=== PATIENT | female | born 1990 | race Caucasian/White ===

== ENCOUNTER → 2019-08-10 11:14 | Outpatient (CLI) | payer OTHER, SELFPAY ==
--- NOTE | ~2019-08-10 | US_ITS ---
EXAMINATION: US OB >= 14 weeks Fetus DATE: 08/10/2019 11:53 INDICATION: survey TECHNIQUE: Multiple obstetric sonographic images performed. FINDINGS: No prior studies for comparison. There is a single living fetus in breech presentation. The placenta is posterior without placenta pr evia. Placental margin to the cervix is 3.6 cm. Amniotic fluid volume is subjectively normal. c ardiac activity and movement is noted with a heart rate of 153 beats per minute. The following anatomy was identified as normal: 4 chamber heart 3 vessel cord cord insertion kidneys urinary bladder stomach spine diaphragm ventricles cisterna magna cerebellum The following biometric data were obtained: BPD: 36mm corresponds to gestational age 17 weeks 0 days. Head circumference: 137 mm corresponds to gestational age 17 weeks 1 days. Abdominal circumference: 104 mm corresponds to gestational age 16 weeks 3 days. Femur length: 19 mm corresponds to gestational age 15 weeks 4 days. Head circumference to abdominal circumference ratio: 1.31 (normal range for expected gestational age is 1.07-1.31). Estimated weight: 145 grams +/- 22 grams using Hadlock method. IMPRESSION: 1: Single living intrauterine with an estimated gestational age of 16weeks 4days by current ultrasound measurements, with an EDC of 01/21/2020 in breech presentation. 2. Normal survey. Reviewed, dictated and finalized at location A. X SYSTEMS ADMINISTRATOR IMPRESSION: 1: Single living intrauterine with an estimated gestational age of 16 weeks 4days by current ultrasound measurements, with an EDC of 01/21/2020 in hillary ech presentation. 2. Normal survey.
== END ==
PROVIDERS: Visit Provider Obstetrics & Gynecology Gynecology
DX: Z36.89 Encounter for other specified antenatal screening (principal); Z36.87 Encounter for antenatal screening for uncertain dates; Z3A.16 16 weeks gestation of pregnancy
CPT/HCPCS: 76805

== ENCOUNTER 2019-12-29 13:17 | Outpatient (RCR) | payer OTHER, SELFPAY ==
--- NOTE | ~2019-12-29 | US_ITS ---
EXAMINATION: US OB limited w BPP DATE: 12/29/2019 14:12 INDICATION: Decreased movement during third trimester TECHNIQUE: Real-time pelvic ultrasound was performed. The interpreting radiologist was not present fo r the study. COMPARISON: None. FINDINGS: There is a single living fetus in vertex presentation. The placenta is posterior. heart rate is 148 beats per minute (bpm). The amniotic fluid index is 17.4 cm which is normal Biophysical profile performed by the technologist: breathing (30 sec sustained breathing in 30 minutes): 2 out of 2 movement (3 gross body movements in 30 minutes): 2 out of 2 tone (one episode of wayhuul-kctqjhvhc-dpjbqxk limb movement): 2 out of 2 Amniotic fluid pocket (2 cm): 2 out of 2 Total score: 8 out of 8 IMPRESSION: 1. Single living fetus in vertex presentation. 2. Biophysical profile 8 out of 8. 3. Normal amniotic fluid index. Reviewed, dictated and finalized at location A.
[2019-12-29 13:43] VITALS: BP 121/78; PULSE 111
== END 2020-01-11 07:57 | disposition home or self-care (01) ==
LOC: ANHOBOP 13:17
PROVIDERS: PCP Family Medicine; Visit Provider Obstetrics & Gynecology Gynecology
DX: O36.8130 Decreased fetal movements, third trimester, not applicable or unspecified (principal); Z3A.37 37 weeks gestation of pregnancy
CPT/HCPCS: 59025; 76815; 76819

== ENCOUNTER 2020-01-06 04:57 | Inpatient (IN) | payer OTHER, SELFPAY ==
[2020-01-06] VITALS (128 sets, daily range): BP systolic 73–126; BP diastolic 25–87; PULSE 64–119; RESP 16; TEMP 36.6–37.2; O2SAT 96–100; BMI 32.6
--- NOTE | 2020-01-06 05:38 | LDADM ---
This patient, Sherrill Macdonald, was admitted to Labor/Delivery/Recovery 104 on 01/06/20 at 04:57. Plans for labor, pain management and were discussed with patient. Patient/family oriented to hospital policies and general routines including ID bracelet, bed and alarms, visiting hours, pain management, procedures, bathroom and other care routines, personal items, smoking policy, room service/diet and guest tray routines, security routines, and visiting hours. Patient/Family are encouraged to report perceived risks to care and to ask questions if they do not understand what they are told or what they should do. See OBIX for further documentation.
[2020-01-06 05:44] LABS: Basophils Percent Auto 0.3 % (0.2-1.2); Eosinophils Absolute Auto 0.2 K/mm3 (0-0.3); Eosinophils Percent Auto 1.4 % (0-4.4); Hematocrit 39.7 % (37.0-47.0); Hemoglobin 13.8 g/dL (12.0-15.0); Immature Granulocyte Absolute 0.07 K/mm3 (0.00-0.031); Immature Granulocyte Percent A 0.6 % (0-0.5); Lymphocytes Absolute Auto 2.56 K/mm3 (0.9-3.2); Lymphocytes Percent Auto 23.2 % (18.3-44.2); Mean Corpuscular HGB Conc 34.8 g/dl (32-36); Mean Corpuscular Hemoglobin 32.3 pg (26-34); Mean Platelet Volume 9.8 fl (7.4-10.4); Monocytes Absolute Auto 0.8 K/mm3 (0.1-0.6); Monocytes Percent Auto 7.1 % (2.6-8.5); Neutrophils Absolute Auto 7.5 K/mm3 (1.3-6.7); Neutrophils Percent Auto 67.4 % (45.5-73.1); Platelet Count Result 207 k/mm3 (150-375); Red Blood Count 4.27 M/mm3 (4.2-5.4); Red Cell Distribution Width 13.7 % (11.5-14.5)
[2020-01-06] MEDS: OXYTOCIN 30 UNITS/NS 500 ML 30 UNITS/500 ML BAG 6 UNITS IV CONT (06:30)
[2020-01-06] MEDS: LACTATED RINGERS 1,000 ML 125 ML IV CONT ×4 (06:30→20:49)
[2020-01-06] MEDS: AMPICILLIN 2 GM/NS 100 ML 2 GM/100 ML BAG IVPB (06:31)
[2020-01-06 07:06] LABS: HIV 1/2 Ab P24 Ag Result Negative (Negative)
[2020-01-06 07:40] LABS: Rapid Plasma Reagin Non-Reactive (NonReactive)
[2020-01-06] MEDS: AMPICILLIN 1 GM/NS 50 ML 1 GM/50 ML BAG IVPB ×3 (10:33→20:30)
--- NOTE | 2020-01-06 12:01 | WPDOBADMIT ---
Obstetrics - Admit Note Admission Note: AROM clear fluid /-2 vertex record reviewed. No pertinent additions to the history and/or any subsequent changes in the physical findings that are not consistent with the expected course of the were found. Additions to the history and/or subsequent changes in the physical findings follow. None.
--- NOTE | 2020-01-06 13:20 | WPDANESEPP ---
Anes - Eval Pre Procedure Procedure: Labor Epidural Date/Time: 01/06/20 13:20 Surgeon: Sher Preop Diagnosis: Labor Pain Pre Op Diagnosis: Induction of Labor Patient Data Age: 29 Gender: F Height: Weight: Last Vital Signs Temp 36.8 C 01/06/20 12:30 Pulse 86 01/06/20 12:15 BP 121/78 01/06/20 12:15 Allergies Allergy/AdvReac Type Severity Reaction Status Date / Time No Known Allergies Allergy Verified 12/14/19 12:42 Home Medications Medication Instructions Recorded Confirmed Type buspirone 7.5 mg tablet 7.5 mg PO BID #180 tablet 10/12/19 12/10/19 Rx escitalopram oxalate 20 mg tablet 20 mg PO DAILY #90 tablet 11/30/19 12/10/19 Rx PNV cmb#95-ferrous fumarate-FA 1 tablet PO DAILY 12/14/19 12/14/19 History [] ergocalciferol (vitamin D2) 1,250 mcg PO WEEKLY 12/14/19 12/14/19 History [Vitamin D2] Laboratory Tests 01/06/20 01/06/20 01/06/20 05:34 05:34 05:34 WBC 11.0 K/mm3 H K/mm3 (4.5-10.0) RBC 4.27 M/mm3 M/mm3 (4.2-5.4) Hgb 13.8 g/dL g/dL (12.0-15.0) Hct 39.7 % % (37.0-47.0) MCV 93.0 fl fl (80-100) MCH 32.3 pg pg (26-34) MCHC 34.8 g/dl g/dl (32-36) RDW 13.7 % % (11.5-14.5) Plt Count 207 k/mm3 k/mm3 (150-375) MPV 9.8 fl fl (7.4-10.4) Immature Gran % (Auto) 0.6 % H % (0-0.5) Neut % (Auto) 67.4 % % (45.5-73.1) Lymph % (Auto) 23.2 % % (18.3-44.2) [place] % (Auto) 7.1 % % (2.6-8.5) Eos % (Auto) 1.4 % % (0-4.4) Baso % (Auto) 0.3 % % (0.2-1.2) Lymph # (Auto) 2.56 K/mm3 K/mm3 (0.9-3.2) [place] # (Auto) 0.8 K/mm3 H K/mm3 (0.1-0.6) Eos # (Auto) 0.2 K/mm3 K/mm3 (0-0.3) Baso # (Auto) 0.0 K/mm3 K/mm3 (0.0-0.1) Abs Immat Gran (auto) 0.07 K/mm3 H K/mm3 (0.00-0.031) Absolute Neuts (auto) 7.5 K/mm3 H K/mm3 (1.3-6.7) Absolute Nucleated RBC 0.0 K/mm3 K/mm3 (0.0-0.012) Nucleated RBC % 0.0 % % (0.0-0.2) RPR Non-reactive (NonReactive) HIV 1&2 Ab/P24 Ag 4thGn Negative (Negative) Blood Type Antibody Screen 01/06/20 05:34 WBC RBC Hgb Hct MCV MCH MCHC RDW Plt Count MPV Immature Gran % (Auto) Neut % (Auto) Lymph % (Auto) [place] % (Auto) Eos % (Auto) Baso % (Auto) Lymph # (Auto) [place] # (Auto) Eos # (Auto) Baso # (Auto) Abs Immat Gran (auto) Absolute Neuts (auto) Absolute Nucleated RBC Nucleated RBC % RPR HIV 1&2 Ab/P24 Ag 4thGn Blood Type O Positive Antibody Screen Negative : gestational age (ARLEN 01/13/20) Patient hx anesthesia problems: none Family hx anesthesia problems: none [facility] Family History Family History Grandparent Hypertension Family history of heart disease in male family member before age 55 Diabetes mellitus Social History Social History Smoking status: Never smoker Second hand tobacco smoke exposure: No Alcohol intake: current Substance use: never Spiritual care concerns: No Exam Day of Procedure 01/06/20 13:20 Patient weight: normal Heart: regular rate and rhythm Lungs: normal air movement Airway: Mallampati scale class II Neurological: alert and oriented
[2020-01-07] VITALS (24 sets, daily range): BP systolic 90–134; BP diastolic 47–95; PULSE 26–159; RESP 16; TEMP 36.6–37.7; O2SAT 79–100
[2020-01-07] MEDS: AMPICILLIN 1 GM/NS 50 ML 1 GM/50 ML BAG IVPB (00:06)
[2020-01-07] MEDS: LACTATED RINGERS 1,000 ML 125 ML IV CONT (00:08)
[2020-01-07] MEDS: OXYTOCIN 30 UNITS/NS 500 ML 30 UNITS/500 ML BAG 125 UNITS IV CONT (02:46)
--- NOTE | 2020-01-07 03:09 | PM.OBPRVD ---
OB - Delivery Note Procedure Delivery date: 01/07/20 Procedure: events: Labor Induction Induction method: AROM and per pitocin protocol Delivery monitor: external FHT, external uterine, internal FHT and internal uterine Route of delivery: Episiotomy description: Right Mediolateral Laceration description: Perineal - 2nd Degree Delivery repair: vicryl Specimen: Yes Estimated blood loss (mL): 400 Anesthesia type: Epidural Disposition: floor Shannon Baby Date of : 01/07/20 Time of : 02:36 Weeks of gestation at delivery: 39 gender: Male Weight (pounds): 7 Weight (ounces): 2 presentation: vertex position: Left Occiput Anterior Placenta delivery description: Spontaneous cord vessel description: 3 Vessels score one minute: 7
[2020-01-07] MEDS: ONDANSETRON INJ 4 MG/2 ML VIAL IV PUSH (04:41)
[2020-01-07] MEDS: IBUPROFEN 600 MG TABLET PO ×2 (04:42→15:42)
[2020-01-07] MEDS: WITCH HAZEL 40 PADS 1 PAD TOPICAL (04:42)
[2020-01-07] MEDS: BENZOCAINE 20% AER SPR (*SP) 56 GM CAN 1 SPRAY TOPICAL (04:43)
[2020-01-07] MEDS: LANOLIN (LANSINOH) 7.5 GM CREAM 1 APPLIC TOPICAL (04:43)
--- NOTE | 2020-01-07 05:31 | PC.NURSE ---
This patient, Sherrill Macdonald, was received from L&D on 01/07/20 at 0515. Personal belongings list checked and signed. Patient/family oriented to unit policies and routines
--- NOTE | 2020-01-07 09:20 | PC.NURSE ---
Consulted with patient, mother reports infant has not breastfed since , infant is now 7 hours old. Reviewed feeding cues, frequencies, duration of feedings, feeding elimination flow sheet, and signs of adequate intake. Demonstrated stimulation techniques to wake infant for feeding. Assisted with infant to breast. is sleepy and makes weak attempts to latch. Attempt for 10 minutes without a successful latch. Feeding options discussed, mother will supplement at this time. Primary RN to assist with bottle feeding. Instructed mother to call out for RN assistance if she is unable to latch for feeding or she has discomfort with nursing. Instructed feeding should be initiated three hours from start of last feeding or if feeding cues are noted before. Mother voiced understanding of information shared.
[2020-01-07] MEDS: DOCUSATE SODIUM 100 MG CAPSULE PO (09:52)
[2020-01-07] MEDS: MULTIVIT/MIN/PREN/FOL AC/IRON TABLET 1 TAB PO (09:52)
[2020-01-07] MEDS: ESCITALOPRAM OXALATE 10 MG TABLET 20 MG PO (09:59)
[2020-01-07] MEDS: busPIRone HCL 2.5 MG, busPIRone HCL 5 MG 7.5 MG PO (10:00)
--- NOTE | 2020-01-07 12:15 | PC.NURSE ---
Mother called out for assist with feeding. Demonstrated stimulation techniques to wake for feeding. Assisted with to breast. Reviewed positioning/alignment in cross cradle, holding breast in U hold and guided asymmetrical latch on. Discussed rational for each. Several attempts before infant was able to latch correctly. Infant made a few weak draws with no swallowing noted. Infant remains sleepy and makes not attempts to latch. Attempt for 10+ minutes. Feeding options discussed, mother will supplement. Suggested mother initiate pumping to stimulate milk supply and offer infant EBM as part of feeding.
--- NOTE | 2020-01-07 13:00 | PC.NURSE ---
Breast pump provided due to ineffective feeding. Instructions given on breast pump care and usage, pumping schedule, nipple care, and collection and storage of breast milk. Encouraged taur-al-duds, breast massage and manual expression to stimulate supply. Assessed patient for correct flange size, placement and draw. Patient verbalizes and demonstrates understanding of instructions.
--- NOTE | 2020-01-07 15:30 | PC.NURSE ---
Assisted mother with feeding. Demonstrated stimulation techniques to wake for feeding. Assisted with to breast. Reviewed positioning/alignment in cross cradle, holding breast in U hold and guided asymmetrical latch on. Discussed rational for each. Several attempts before was able to latch correctly. Infant made a few weak draws with no swallowing noted. Infant remains sleepy and makes not attempts to latch. Attempt for 10+ minutes. Feeding options discussed, mother will supplement. Mother will pump after supplementation.
--- NOTE | 2020-01-07 17:26 | PC.NURSE ---
Nurse and/or hospice care sales consultant has worked with mother and baby at each feeding today. Baby very sleepy; he has has made no effort to root to latch to feed; numerous attempts made to wake and get him to latch. Mother is attempting breast feeding, then bottle feeding infant. Mother and FOB have fed today. Mother initiated pumping after each breast feeding attempt. she was shown pump set-up and settings. Baby has good suck/swallow with bottle feeding and has tolerated feedings well. Parents reassured that baby will start to be more awake and make more effort in breast feeding, but to continue this plan. They are in agreement.
[2020-01-08] MEDS: IBUPROFEN 600 MG TABLET PO ×3 (04:16→19:47)
[2020-01-08 05:35] LABS: Hematocrit 31.4 % (37.0-47.0); Hemoglobin 10.7 g/dL (12.0-15.0)
[2020-01-08 08:30] VITALS: BP 118/84; PULSE 67; RESP 18; TEMP 36.5; O2SAT 98
[2020-01-08] MEDS: DOCUSATE SODIUM 100 MG CAPSULE PO (08:58)
[2020-01-08] MEDS: MULTIVIT/MIN/PREN/FOL AC/IRON TABLET 1 TAB PO (08:58)
[2020-01-08] MEDS: busPIRone HCL 2.5 MG, busPIRone HCL 5 MG 7.5 MG PO ×2 (08:59→19:47)
[2020-01-08] MEDS: ESCITALOPRAM OXALATE 10 MG TABLET 20 MG PO (08:59)
--- NOTE | 2020-01-08 10:16 | WPDANLDPN2 ---
Anes-Prog Note L&D Date/Time: 01/08/20 10:16 Comfortable throughout: labor Neuraxial method: epidural Epidural/Spinal procedure site: clean & non-tender Neuro status: Neuro function grossly intact. Cardiovascular status: normal Respiratory status: normal Airway patency: baseline Mental status: baseline Post-Op hydration status: normal Vital Signs: Last Vital Signs Temp 97.8 F 01/07/20 19:33 Pulse 72 01/07/20 19:33 Resp 16 01/07/20 19:33 BP 115/69 01/07/20 19:33 Pulse Ox 98 01/07/20 19:33 I/O: Intake & Output 01/07/20 01/08/20 01/08/20 23:59 07:59 15:59 Intake Total 500 Balance 500 Post-procedural complaints: none Patient feedback: Patient satisfied with anesthetic care.
[2020-01-08 19:45] VITALS: BP 104/80; PULSE 64; RESP 18; TEMP 36.8; O2SAT 100
--- NOTE | 2020-01-09 08:00 | PC.NURSE ---
PT introductions made and plan of care discussed per post , pain management, breast feeding, daily care activities and pending discharge to home. PT verbalized understanding of such care.
[2020-01-09 09:30] VITALS: BP 111/80; PULSE 64; PULSE 90; RESP 18; TEMP 36.4; O2SAT 100
--- NOTE | 2020-01-09 09:30 | PC.NURSE ---
Patient viewed the discharge video Mother & Baby Care, The First Two Weeks . Patient was given the opportunity and encouraged to ask questions. Patient verbalized understanding of information shared and has been given the mother/baby guide for home reference.
[2020-01-09] MEDS: IBUPROFEN 600 MG TABLET PO (09:51)
[2020-01-09] MEDS: MULTIVIT/MIN/PREN/FOL AC/IRON TABLET 1 TAB PO (09:51)
[2020-01-09] MEDS: DOCUSATE SODIUM 100 MG CAPSULE PO (09:53)
[2020-01-09] MEDS: busPIRone HCL 2.5 MG, busPIRone HCL 5 MG 7.5 MG PO (09:53)
[2020-01-09] MEDS: ESCITALOPRAM OXALATE 10 MG TABLET 20 MG PO (09:54)
--- NOTE | 2020-01-09 11:01 | PM.OBPNVD ---
OB - PN: Subj Subjective Date/time seen: 01/09/20 11:01 S: doing well no complaints OB - PN: Obj Data Labs CBC & Chem 7: 01/08/20 04:22 OB - PN A/P Assessment and Plan (1) (normal spontaneous vaginal delivery): Code(s): O80 - Encounter for full-term uncomplicated delivery Status: Acute Assessment and Plan: d/c home home Time Spent With Patient Time: Total time spent is greater than 50% in coordination of care (as documented) at patient's floor/unit and/or counseling patient: Exam GI: Other: ff below umbilicus
--- NOTE | 2020-01-09 14:30 | PC.NURSE ---
Pt received discharge instructions per protocol and verbalized understanding of such care.
--- NOTE | 2020-01-09 15:00 | PC.NURSE ---
PT discharged to home ambulatory accompanied by spouse and and taken to waiting car.
[2020-01-11 08:34] VITALS: BP 115/85; PULSE 59; RESP 16; TEMP 37.5; O2SAT 99
--- NOTE | 2020-01-27 13:50 | PM.OBDSVD ---
DS: Admitting Diagnosis Admitting Diagnosis Admitting Diagnosis: Encounter for supervision of normal , unspecified, third trimester OB - DS: Summary OB Procedures : Ultrasound OB Procedures Intrapartum: Spontaneous Vag Delivery OB Procedures: : None Peripartum Data Delivery Method: Natural Vaginal Laceration description: Periurethral - 2nd Degree Time Spent with Patient Time attestation: Total time spent providing and/or coordinating discharge services: DS: Data Data Completed and Pending Completed studies during hospitalization: Pending at discharge 01/07/20 02:39 Surgical [PTH] Routine Discharge Plan Discharge Attending physician on discharge: Gabriel Dumont Discharging Clinician: Gabriel Dumont Patient Disposition: Home, Self-Care Activity: may shower Diet: regular Discharge Instructions: Education: Mom and Baby Guide Given to: Mother Follow-Up: Call your delivering provider's office for an appointment to be seen in: 6 Weeks [facility]. Appointment Date/Time: January 11, 2020 at 8:00 am What to expect at your follow-up visit: Blood Pressure Check Call [phone] if you are unable to keep your appointment time. BREAST CARE: 1. Wear a snug supportive bra. 2. For engorgement discomfort: Breast Feeding: A. Apply warm moist washcloths B. Express milk as needed to relieve engorgement C. Wear loose clothing Bottle Feeding: A. May apply ice packs 3. For sore nipples: A. Identify correct latch-on B. Apply warm moist washcloths before and after nursing C. Air dry nipples after nursing D. May apply Lansinoh cream to nipples PERINEAL CARE: 1. Until bleeding stops, use your gordo bottle after urinating 2. Change your pad frequently throughout the day 3. You may take sitz baths several times a day (fill your bathtub with warm water and soak for 20 minutes.) Do NOT bathe in the water 4. No tub baths until seen by your physician - You may shower ACTIVITY: 1. Rest as much as possible. 2. Do not exercise or lift anything heavier than your baby (such as laundry or other children.) 3. Avoid stairs or driving as much as possible. 4. Do not put anything into the vagina. No douching, tampons, or sexual activity until seen by physician. NOTIFY PHYSICIAN IF YOU HAVE ANY QUESTIONS OR IF ANY OF THE FOLLOWING SYMPTOMS OCCUR: 1. If your perineum becomes red, swollen, or more painful than what you have experienced in the hospital. 2. If your vaginal bleeding becomes foul smelling. 3. If your vaginal bleeding becomes more heavy than a period or if your bleeding changes from pink to bright red. However, you may pass an occasional walnut-sized clot once or twice for the first week . 4. If you experience a sharp, shooting pain in you calves. 5. If you discover a hard, reddened area on your breast or if you experience flu-like symptoms. DIET: 1. Eat regular, well-balanced meals. 2. Drink plenty of fluids daily. If , drink to thirst. Patient Instructions: Antibiotic Form Stand Alone Forms: General Discharge Information Follow-up/Referrals: Gabriel Dumont MD [Physician] - Discharge Medications: Continued PNV cmb#95-ferrous fumarate-FA [] 28 mg iron- 800 mcg Tablet 1 tablet PO DAILY RF: 0 ergocalciferol (vitamin D2) [Vitamin D2] 1,250 mcg (50,000 unit) Capsule 1,250 mcg PO WEEKLY RF: 0 escitalopram oxalate [Lexapro] 20 mg tablet 20 mg PO DAILY Qty: 90 RF: 0 No Action buspirone 7.5 mg tablet 7.5 mg PO BID Qty: 180 RF: 0 Date of admission: 01/06/20 04:57 Primary Care Provider: Keo Loyola Admitting Provider: Lucie Olivarez Discharge Date/Time: 01/09/20 15:00 Attending physician on admission: Gabriel Dumont
== END 2020-01-09 15:00 | disposition home or self-care (01) | DRG 807 ==
LOC: ANHLDR 01-07 03:09 → ANHOB2 01-07 13:48 → ANHLDR 01-11 20:48 → ANHOB2 01-11 20:48
PROVIDERS: Admitting Provider Obstetrics & Gynecology Gynecology; PCP Family Medicine; Visit Provider Obstetrics & Gynecology
DX: O99.824 Streptococcus B carrier state complicating childbirth (principal); Z37.0 Single live birth; Z3A.39 39 weeks gestation of pregnancy; O99.344 Other mental disorders complicating childbirth; O70.1 Second degree perineal laceration during delivery; F41.8 Other specified anxiety disorders; O36.8330 Maternal care for abnormalities of the fetal heart rate or rhythm, third trimester, not applicable or unspecified
CPT/HCPCS: 36415; 85014; 85018; 85025; 86592; 86703; 86850; 86900; 86901; 88307; A9270; G0432; J0290; J2405; J2590; J2795; J7120

== ENCOUNTER → 2020-07-11 11:47 | Outpatient (CLI) | payer BC, SELFPAY ==
--- NOTE | ~2020-07-11 | US_ITS ---
EXAMINATION: US thyroid DATE: 07/11/2020 12:04 INDICATION: Enlarged thyroid. TECHNIQUE: Multiple ultrasound images of the thyroid were obtained. COMPARISON: None. FINDINGS: The right thyroid lobe measures 6.7 x 2.7 x 2.5 cm. The left thyroid lobe measures 5.9 x 2.5 x 2.1 c m. The thyroid is diffusely hypoechoic with coarsened echotexture and increased vascularity, consist ent with chronic lymphocytic (Nanci) thyroiditis. In the left thyroid lobe, there is a 1.1 cm pre dominantly solid, hyperechoic, nxdwj-anjl-pqof nodule with ill-defined margin without echogenic foci (TI-RADS TR3). IMPRESSION: 1. Heterogeneous, hypervascular thyroid, likely chronic lymphocytic (Nanci) thyroiditis. 2. 1.1 cm left thyroid nodule, likely not clinically significant. No follow-up is needed. Reviewed, dictated and finalized at location B. CTOR DIABETES
== END ==
PROVIDERS: Visit Provider Nurse Practitioner
DX: E04.1 Nontoxic single thyroid nodule (principal)
CPT/HCPCS: 76536

== ENCOUNTER 2020-07-14 16:51 | Outpatient (CLI) | payer BC, SELFPAY ==
--- NOTE | ~2020-07-14 | CT_ITS ---
EXAMINATION: CT abdomen pelvis w con INDICATION: Left lower quadrant pain TECHNIQUE: Computed tomographic images of the abdomen and pelvis were obtained after the administrati on of 100 cc of Omnipaque 350 intravenous contrast. The dose-length product (DLP) was 594.51 mGy-cm. Automated exposure control and iterative reconstruction technique were employed. COMPARISON: 09/21/2013 FINDINGS: Minimal dependent atelectasis is present in the lung bases. The heart size is normal. The l iver, spleen, pancreas, gallbladder, and adrenal glands are normal. The kidneys are unremarkable. No pathologically enlarged abdominal or pelvic lymph nodes are identified. There is no free intraperiton eal gas or evidence of bowel obstruction. A large volume of colonic stool is present. An IUD is prese nt in the uterus in expected position. IMPRESSION: 1. Constipation. Reviewed, dictated and finalized at location A. EAR TECHNOLOGIST IMPRESSION: 1. Constipation.
[2020-07-14 17:25] LABS: Basophils Absolute Auto 0.1 K/mm3 (0.0-0.1); Basophils Percent Auto 0.7 % (0.2-1.2); Eosinophils Absolute Auto 0.3 K/mm3 (0-0.3); Eosinophils Percent Auto 3.4 % (0-4.4); Hematocrit 44.1 % (37.0-47.0); Immature Granulocyte Absolute 0.03 K/mm3 (0.00-0.031); Immature Granulocyte Percent A 0.4 % (0-0.5); Lymphocytes Percent Auto 33.3 % (18.3-44.2); Mean Corpuscular Hemoglobin 30.1 pg (26-34); Mean Corpuscular Volume 88.4 fl (80-100); Mean Platelet Volume 8.8 fl (7.4-10.4); Monocytes Absolute Auto 0.6 K/mm3 (0.1-0.6); Monocytes Percent Auto 7.5 % (2.6-8.5); Neutrophils Absolute Auto 4.6 K/mm3 (1.3-6.7); Neutrophils Percent Auto 54.7 % (45.5-73.1); Platelet Count Result 262 k/mm3 (150-375); Red Blood Count 4.99 M/mm3 (4.2-5.4); White Blood Count 8.4 K/mm3 (4.5-10.0)
[2020-07-14 17:36] LABS: Alanine Aminotransferase 30 U/L (4-35); Albumin Level 4.4 g/dL (3.5-5.1); Alkaline Phosphatase 81 U/L (38-126); Amylase 108 U/L (30-110); Anion Gap 6 mmol/L (8-16); Aspartate Amino Transferase 31 U/L (14-36); Bilirubin,Total 0.6 mg/dL (0.2-1.3); Blood Urea Nitrogen 10 mg/dL (7-17); Calcium 8.7 mg/dL (8.4-10.2); Carbon Dioxide 24 mmol/L (22-30); Chloride 107 mmol/L (98-107); Estimated Glomerular Filt Rate > 60; Glucose 89 mg/dL (65-105); Lipase 188 U/L (23-300); Potassium 3.9 mmol/L (3.4-5.0); Sodium 137 mmol/L (137-145)
== END 2020-07-14 16:52 | disposition home or self-care (01) ==
PROVIDERS: Family Provider Family Medicine; PCP Family Medicine; Visit Provider Nurse Practitioner Family
DX: R10.817 Generalized abdominal tenderness (principal); R10.84 Generalized abdominal pain; R10.814 Left lower quadrant abdominal tenderness
CPT/HCPCS: 36415; 74177; 80053; 82150; 83690; 85025; Q9967

== ENCOUNTER → 2021-03-15 14:18 | Outpatient (CLI) | payer BC, SELFPAY ==
--- NOTE | ~2021-03-15 | US_ITS ---
EXAMINATION: US pelvic complete DATE: 03/15/2021 14:35 INDICATION: Pelvic pain Comparison:No prior studies for comparison. TECHNIQUE: Multiple transabdominal sonographic images of the pelvis performed. FINDINGS: The uterus measures 9.6 x 2.5 x 4.7 cm. There is an IUD in the endometrium. The endometrial complex measures 5 mm. The right ovary measures 2.5 x 1.7 x 2 cm and the left ovary measures 3.6 x 1.9 x 2.7 cm. There are small follicles in each ovary. Normal doppler signal in both ovaries. There is no free fluid in the pelvis. There are no abnormal masses seen on either side. IMPRESSION: 1. Unremarkable pelvic ultrasound. Reviewed, dictated and finalized at location A.
== END ==
PROVIDERS: Visit Provider Nurse Practitioner
DX: R10.2 Pelvic and perineal pain (principal)
CPT/HCPCS: 76856

== ENCOUNTER → 2022-09-03 13:44 | Outpatient (CLI) | payer BC, SELFPAY ==
--- NOTE | ~2022-09-03 | US_ITS ---
Pelvic ultrasound. Clinical History: Pelvic pain Technique: Realtime transabdominal and transvaginal scanning of the pelvis was performed. Color flow Doppler and Doppler spectral analysis were performed. Findings: The uterus is anteverted. The endometrial stripe has a thickness of 3 mm. IUD in satisfact ory position. No focal mass is identified. The right ovary measures 2.1 x 2.1 x 2.5 cm. No significant right ovarian or adnexal mass is seen. The left ovary measures 3.1 x 2.2 x 2.3 cm. No significant left ovarian or adnexal mass is seen. Vascular flow present in both ovaries on Doppler spectral analysis. There is no evidence of free fluid in the cul de sac. Impression: IUD in place, otherwise unremarkable exam. Reviewed, dictated and finalized at [facility]. Impression: IUD in place, otherwise unremarkable exam.
== END ==
PROVIDERS: PCP Nurse Practitioner; Visit Provider Nurse Practitioner
DX: R10.2 Pelvic and perineal pain (principal); Z97.5 Presence of (intrauterine) contraceptive device
CPT/HCPCS: 76830

== ENCOUNTER 2023-10-23 13:28 | Outpatient (CLI) | payer BC, SELFPAY ==
--- NOTE | ~2023-10-23 | US_ITS ---
EXAMINATION: US pelvic complete DATE: 10/23/2023 13:50 INDICATION: Polycystic ovarian syndrome. TECHNIQUE: Multiple transabdominal and transvaginal sonographic images of the pelvis were obtained. COMPARISON: Ultrasound 09/03/2022 FINDINGS: The uterus measures 8.6 x 3.3 x 4.5 cm. There is no free fluid in the pelvis. The endometrial complex measures 4 mm in thickness. There is an intrauterine device in expected position. The right ovary me asures 2.5 x 2.0 x 2.4 cm. The left ovary measures 2.9 x 2.9 x 2.1 cm. There is normal vascular flow in the ovaries. IMPRESSION: 1. Normal pelvis. Intrauterine device in expected position. Reviewed, dictated and finalized at location A.
== END 2023-10-23 13:29 ==
LOC: MICIMG 13:29
PROVIDERS: PCP Family Medicine; Visit Provider Nurse Practitioner
DX: E28.2 Polycystic ovarian syndrome (principal)
CPT/HCPCS: 76856